=== PATIENT | female | born 1995 | race Asian ===

== ENCOUNTER 2024-08-17 08:31 | Emergency (ER) | payer OTHER, MEDICAID, SELFPAY ==
[2024-08-17 08:36] VITALS: BP 144/90; PULSE 94; RESP 18; TEMP 36.8; BMI 38.9
--- NOTE | 2024-08-17 08:47 | ED.SKABFB ---
HPI - Skin/Abscess/Foreign Bdy General Chief complaint: Skin/Abscess/Foreign Body Stated complaint: sores in throat/face Time Seen by Provider: 08/17/24 08:46 Source: patient, RN notes reviewed and old records reviewed Mode of arrival: Ambulatory Limitations: no limitations History of Present Illness HPI narrative: 29-year-old female presents with complaint of sores on her face torso, mouth and hands. Patient states they sewed up the last 2 or 3 days. No fevers that she was aware of. She has had a little nasal congestion. Notes a little bit of mild mouth pain. No difficulty with speech. No chest pain or shortness of breath, no nausea or vomiting, no GI or urinary symptoms. Has not had any other symptoms. Does not have any known sick contacts but does have 2 younger children with her. States have a new face wash and recently stopped taking moved into a new home unsure if any this could be resolved. Notes the bumps are painful and a little bit itchy. Related Data Allergies Allergy/AdvReac Type Severity Reaction Status Date / Time Penicillins Allergy Verified 08/17/24 08:36 Review of Systems Review of Systems ROS Unobtainable: All systems reviewed & are unremarkable except as noted in HPI and below Patient History Social History Smoking Status: Unknown if ever smoked Smoking Status: Unknown if ever smoked alcohol intake frequency: other Substance Use Type: does not use Exam Narrative Exam Narrative: GEN: well nourished, well appearing female, alert and oriented x 3, patient appears to be in mild distress. HEENT: Atraumatic, pupils are equal round reactive to light, extraocular movements are intact, nares are clear, TMs are clear with no fluid, there is no conjunctival pallor. Throat is clear without any exudates, erythema, tonsillar enlargement or uvular deviation, patient does have several small areas of ulceration on her hard and soft palate. HEART: Regular rate and rhythm without murmur, clicks, rubs. No carotid bruits, pulses are equal in upper and lower extremities LUNGS:Lungs clear to auscultation, no wheezes, rales, crackles, chest moves symmetrically ABD:bowel sounds normal, soft, non-tender, no guarding, rebound, rigidity, no masses noted, no hepatosplenomegaly :No CVA tenderness MSCL: Non-tender, no muscle atrophy, muscles strength 5/5 upper and lower extremities, full range of motion, normal gait NEURO:CN 2-12 intact, sensation normal SKIN: Patient has small erythematous papules on areas of ulceration with slight scabbing her forehead torso and palms of bilateral hands Initial Vital Signs Initial Vital Signs: Vital Signs Temperature 98.3 F 08/17/24 08:36 Pulse Rate 94 H 08/17/24 08:36 Respiratory Rate 18 08/17/24 08:36 Blood Pressure 144/90 H 08/17/24 08:36 Course Vital Signs Vital signs: Vital Signs - 8 hr 08/17/24 08:36 08/17/24 09:28 Temperature 98.3 F 98.6 F Pulse Rate 94 H 90 Respiratory Rate 18 20 Blood Pressure 144/90 H 147/87 H Pulse Oximetry 100 MDM - Skin/Abscess/Foreign Bdy MDM Narrative Medical decision making narrative: 29-year-old female well-appearing, patient has symptoms and exam most consistent with [id number] disease. She has no known recent contacts but do does have have her 2 younger children who are accompanying her at this time. She is otherwise well-appearing. Discharge Plan Departure Patient Disposition: Home Clinical Impression: Hand, foot and mouth disease Instructions: Hand, Foot, and Mouth Disease Activity Restrictions/Additional Instructions: You has been diagnosed with [id number] disease, this is a viral illness that typically last 10-14 days. You can take Tylenol and/or ibuprofen as needed for discomfort and any fevers. Would recommend contact precautions, disease is spread through saliva/secretions. Please return if you have any difficulty with breathing, lightheadedness or passing out, persistent vomiting or other new or concerning changes. Stand Alone Forms: Patient Portal/API/Survey
[2024-08-17 09:28] VITALS: BP 147/87; PULSE 90; RESP 20; TEMP 37; O2SAT 100
== END 2024-08-17 09:30 | disposition home or self-care (01) ==
PROVIDERS: Emergency Provider Emergency Medicine
DX: B08.4 Enteroviral vesicular stomatitis with exanthem (principal)
CPT/HCPCS: 99281

== ENCOUNTER 2024-08-20 18:16 | Emergency (ER) | payer OTHER, MEDICAID, SELFPAY ==
[2024-08-20 18:21] VITALS: BP 127/100; PULSE 91; RESP 14; TEMP 36.7; O2SAT 98; BMI 38.9
--- NOTE | 2024-08-20 20:20 | ED.SKABFB ---
HPI - Skin/Abscess/Foreign Bdy General Chief complaint: Skin/Abscess/Foreign Body Stated complaint: returning from Saturday, infected blisters Time Seen by Provider: 08/20/24 19:20 Source: patient Mode of arrival: Ambulatory Limitations: no limitations History of Present Illness HPI narrative: 29-year-old female presents for possible skin infection. Patient seen in the emergency department 08/17 for rash present on her body. She was given presumptive diagnosis of kpuh-pykp-[id number] disease and supportive care measures were counseled. Patient states that since yesterday some of the areas on her face and body seem to be becoming irritated and inflamed. She was concerned for infection and decided to present for evaluation. Has been using calamine lotion for comfort. Related Data Previous Rx's Medication Instructions Recorded doxycycline hyclate 100 mg tablet 100 mg PO BID #28 tabs 08/20/24 Allergies Allergy/AdvReac Type Severity Reaction Status Date / Time Penicillins Allergy Verified 08/20/24 18:21 Patient History Social History Smoking Status: Unknown if ever smoked Smoking Status: Unknown if ever smoked alcohol intake frequency: other Substance Use Type: does not use Exam Initial Vital Signs Initial Vital Signs: Vital Signs Temperature 98.1 F 08/20/24 18:21 Pulse Rate 91 H 08/20/24 18:21 Respiratory Rate 14 08/20/24 18:21 Blood Pressure 127/100 H 08/20/24 18:21 Pulse Oximetry 98 08/20/24 18:21 Oxygen Delivery Method Room Air 08/20/24 18:21 Const: Awake, alert, no acute distress, nontoxic appearing MSK: Atraumatic, full range of motion, pulses equal Skin: Warm, Dry, multiple scattered umbilicated lesions on face, back, chest, arms, legs. Small amount of erythema underlying lesions of face Neuro: AO x3, CN II-XII grossly intact, moves all extremities Course Vital Signs Vital signs: Vital Signs - 8 hr 08/20/24 20:27 Pulse Rate 85 Respiratory Rate 18 Blood Pressure 129/89 Pulse Oximetry 98 Oxygen Delivery Method Room Air MDM - Skin/Abscess/Foreign Bdy Differential Diagnosis Differential diagnosis: Likely abscess of skin or subcutaneous tissue, viral exanthem and dermatophytosis MDM Narrative Medical decision making narrative: patient concerned that she may have skin infection. The lesions today seemed to have an umbilicated appearance, question if this is in fact molluscum contagiosum. No matter what, this does appear to be that this is a viral exanthem. there may appeared to be some underlying evolving infection of the lesions on the face. Patient counseled to continue to avoid touching the sores and a prophylactic course of doxycycline will be sent to her pharmacy. Discharge Plan Departure Patient Disposition: Home Clinical Impression: Rash or skin eruption accompanying infectious disease Instructions: DI for Cellulitis -- Adult Activity Restrictions/Additional Instructions: This rash may also be something called molluscum contagiosum Rather than uqlx-vure-fuuol disease. No matter what this is called, it was viral and will resolve with time. To help prevent infection on your face we will start a short course of doxycycline. If you wash your face use a gentle cleansing soap such as CeraVe or Cetaphil. avoid touching or manipulating the irritated spots. Prescriptions: New doxycycline hyclate 100 mg tablet 100 mg PO BID Qty: 28 0RF Referrals: Miscellaneous,Doctor, [Primary Care Provider] - Stand Alone Forms: Patient Portal/API/Survey, Work Release Note
[2024-08-20 20:27] VITALS: BP 129/89; PULSE 85; RESP 18; O2SAT 98
== END 2024-08-20 20:30 | disposition home or self-care (01) ==
PROVIDERS: Emergency Provider Emergency Medicine
DX: R21 Rash and other nonspecific skin eruption (principal)
CPT/HCPCS: 99281

== ENCOUNTER 2025-09-14 11:02 | Emergency (ER) | payer OTHER, MEDICAID, SELFPAY ==
[2025-09-14 11:38] VITALS: BP 158/96; PULSE 83; RESP 18; TEMP 36.6; O2SAT 100; BMI 30.9
--- NOTE | 2025-09-14 14:50 | DI.RAD.S_ITS ---
PROCEDURE: XR SHOULDER RT MIN 2V INDICATIONS: shoulder pain TECHNIQUE: 3 views of the shoulder were acquired. COMPARISON: None. FINDINGS: Bones: No fractures or dislocations. No suspicious bony lesions. Visualized ribs appear intact. Soft tissues: No suspicious soft tissue calcifications. Calcific supraspinatus tendinopathy. IMPRESSION: No acute bony abnormality. Calcific tendinopathy. Dictated by: Vinay Shields M.D. on 09/14/2025 at 15:36 Approved by: Viany Shields M.D. on 09/14/2025 at 15:37
[2025-09-14] MEDS: KETOROLAC 30 MG/ML VIAL IM (14:55)
[2025-09-14 14:59] VITALS: BP 138/86; PULSE 87; RESP 16; O2SAT 100
--- NOTE | 2025-09-14 15:20 | ED_ITS ---
HPI - Extremity Injury (Upper) General Chief Complaint: Extremity Injury, Upper Stated Complaint: rt shoulder px x1 wk Time Seen by Provider: 09/14/25 14:43 Source: patient Mode of arrival: Ambulatory History of Present Illness HPI narrative: 30-year-old female presents to the ED with 1 week of right-sided shoulder pain. Patient has a job in the [employer] where she frequently slings bags of clothes over her shoulder, which is what she suspects caused her shoulder pain. No other trauma. No numbness, tingling, weakness. Patient states that her pain is worsened with abduction. She has taken some ibuprofen with good relief. Related Data Previous Rx's ?Medication ?Instructions ?Recorded doxycycline hyclate 100 mg tablet 100 mg PO BID #28 ta bs 08/20/24 Allergies Allergy/AdvReac Type Severity Reaction Status Date / Time Penicillins Allergy Verified 08/20/24 18:21 Review of Systems Constitutional Constitutional: Denies chills, Denies fatigue, Denies fever(s), Denies frequent falls, Denies lethargy and Denies weakness Eyes Eyes: Denies change in vision, Denies eye discharge, Denies irritation and Denies loss of vision ENT Ears, Nose, Mouth, and Throat: Denies change in voice, Denies dizziness, Denies neck pain, Denies sore throat and Denies throat swelling Cardiovascular Cardiovascular: Denies chest pain, Denies irregular heart rhythm, Denies lightheadedness, Denies palpitations, Denies dyspnea, Denies dyspnea on exertion and Denies orthopnea Respiratory Respiratory: Denies cough, Denies dyspnea, Denies dyspnea on exertion and Denies wheezing Gastrointestinal Gastrointestinal: Denies abdominal pain, Denies change in bowel habits, Denies diarrhea, Denies nausea and Denies vomiting Musculoskeletal Musculoskeletal: Denies neck pain and Denies numbness Comments: Right shoulder pain Integumentary/Breasts Skin/Breast: Denies pruritus, Denies erythema, Denies rash and Denies wounds Neurologic Neurologic: Denies behavioral changes, Denies confusion, Denies dizziness, Denies frequent falls, Denies loss of vision, Denies numbness and Denies weakness Psychiatric Psychiatric: Denies anxiety, Denies behavioral changes, Denies confusion, Denies depression, Denies homicidal ideation and Denies suicidal ideation Endocrine Endocrine: Denies fatigue, Denies flushing and Denies palpitations Hematologic/Lymphatic Hematologic/Lymphatic: Denies easy bruising Allergic/Immunologic Allergic/Immunologic: Denies urticaria, Denies throat swelling and Denies wheezing Patient History tobacco type: vaping alcohol intake frequency: other Exam Narrative Exam Narrative: Const General:?cooperative, healthy appearing and comfortable [facility] Head:?normal to inspection Ears:?hearing grossly normal bilaterally Nose:?external nose normal Face and sinus:?normal facial exam and sinuses nontender Mouth:?oral mucosae normal Throat:?posterior oropharynx normal Eyes General:?appearance normal, both eyes and all related structures Neck Neck:?normal visual inspection and no lymphadenopathy noted Resp Effort & Inspection:?normal respiratory effort Auscultation:?clear to auscultation bilaterally Cardio Rate:?regular rate Rhythm:?regular rhythm Musculoskeletal There is some tenderness to palpation of the right shoulder. No clavicular tenderness. Range of motion is limited by pain. Neurovascularly intact. Neuro General:?patient alert, patient awake and patient oriented x3 Initial Vital Signs Initial Vital Signs: Vital Signs Temperature 97.8 F 09/14/25 11:38 Pulse Rate 83 09/14/25 11:38 Respiratory Rate 18 09/14/25 11:38 Blood Pressure 158/96 H 09/14/25 11:38 Pulse Oximetry 100 09/14/25 11:38 Oxygen Delivery Method Room Air 09/14/25 11:38 Course Orders Ordered: ED Orders 09/14/25 14:50 XR shoulder RT 2+ views Stat Discontinued Medications Ketorolac Tromethamine (Ketorolac 30 Mg/Ml Vial) 30 mg IM NOW ONE Stop: 09/14/25 14:51 Last Admin: 09/14/25 14:55 Dose: 30 mg Documented By: ANABEL Vital Signs Vital signs: Vital Signs - 8 hr 09/14/25 11:38 09/14/25 14:59 09/14/25 16:02 Temperature 97.8 F Pulse Rate 83 87 73 Respiratory Rate 18 16 16 Blood Pressure 158/96 H 138/86 144/85 H Pulse Oximetry 100 100 100 Oxygen Delivery Method Room Air Room Air Room Air MDM - Extremity Injury (Upper) MDM Narrative Medical decision making narrative: 30-year-old female presents to the ED with 1 week of right-sided shoulder pain. Will obtain x-ray to rule out fracture/dislocation. Patient was given Toradol for pain. Will reassess. X-ray shows calcific tendinopathy of the right shoulder. Discussed findings with patient. Patient's symptoms improved with the Toradol. Recommend continuing NSAIDs and light stretching. Recommend follow-up with PCP for PT referral. ED return precautions discussed with patient. Patient verbalized understanding. Medical records reviewed: Yes Discharge Plan Departure Patient Disposition: Home Clinical Impression: Calcific tendinitis Instructions: DI for Calcific Tendonitis of the Shoulder Activity Restrictions/Additional Instructions: You were evaluated in the emergency department today for right-sided shoulder pain. The x-ray did not show any fractures or dislocation. The x-ray does show calcific tendinopathy which is calcium deposits in your tendons, which is the likely cause of your pain. This condition usually resolves spontaneously over time. You may control your symptoms by taking Tylenol, ibuprofen. It is also advisable that you follow-up with your primary care doctor so you can get a referral to physical therapy. Prescriptions: No Action doxycycline hyclate 100 mg tablet 100 mg PO BID Qty: 28 0RF Referrals: Miscellaneous,Doctor, [Primary Care Provider, Medical] Stand Alone Forms: Patient Portal/API
[2025-09-14 16:02] VITALS: BP 144/85; PULSE 73; RESP 16; O2SAT 100
== END 2025-09-14 16:13 | disposition home or self-care (01) ==
PROVIDERS: Emergency Provider Student in an Organized Health Care Education/Training Program
DX: M75.31 Calcific tendinitis of right shoulder (principal)
CPT/HCPCS: 73030; 96372; 99283; J1885